=== PATIENT | female | born 1970 | race Caucasian/White ===

== ENCOUNTER → 2018-09-25 | Day surgery (SDC) | payer BC ==
[~2018-09-25] MED LIST: CHOL10003 PO; IV RINGERS,LACTATED 1000ML 1,000 ML IV SCH; LIDOCAINE 1% PF 2 ML VIAL. ID PRN; LIDOCAINE 2% PF 5 ML VIAL. ONE; MIDAZOLAM HCL/PF 2 MG/2 ML VIAL. IV PRN; PROPOFOL 40 ML IV ONE; fentaNYL PF VIAL 100 MCG/2 ML VIAL IV PRN
[2018-09-25 12:25] LABS: U PREG PATIENT NEGATIVE (NEG)
[2018-09-25 13:36] VITALS: BP 117/78
== END | disposition home or self-care (01) ==
LOC: SURG 11:42
PROVIDERS: ATTEND Internal Medicine Gastroenterology
DX: K22.2 Esophageal obstruction (principal); K64.0 First degree hemorrhoids; Z98.84 Bariatric surgery status; Z88.0 Allergy status to penicillin; K21.9 Gastro-esophageal reflux disease without esophagitis; Z83.71 Family history of colonic polyps; Z83.3 Family history of diabetes mellitus; Z82.49 Family history of ischemic heart disease and other diseases of the circulatory system; Z72.89 Other problems related to lifestyle; Z79.899 Other long term (current) drug therapy; Z98.890 Other specified postprocedural states
CPT/HCPCS: 43235; 43450; 45378; 81025; J2001; J2704

== ENCOUNTER 2020-05-28 07:14 | Inpatient (IN) | payer OTHER ==
[~2020-05-28] VITALS: Ht 167.6 cm; Wt 102.7 kg
[~2020-05-28 07:14] MED LIST changes: -IV RINGERS,LACTATED 1000ML 1,000 ML IV SCH; -LIDOCAINE 1% PF 2 ML VIAL. ID PRN; -LIDOCAINE 2% PF 5 ML VIAL. ONE; -MIDAZOLAM HCL/PF 2 MG/2 ML VIAL. IV PRN; -PROPOFOL 40 ML IV ONE; -fentaNYL PF VIAL 100 MCG/2 ML VIAL IV PRN
--- NOTE | 2020-05-28 08:00 | PHYS DOC ---
General Adult EDM: Chief Complaint: SHORTNESS OF BREATH HPI: HPI: Patient is a 50 year old female who presented to ER for evaluation of trouble breathing. Patient has been sick with cough and URI symptoms for a week, she was tested positive for COVID-19 5 days ago. Patient is on Z-Sage, prednisone, albuterol inhaler. She presented to ER today because her pulse ox at home was read at 80% on room air. Patient had no history of COPD, she is not on oxygen at home. Review of Systems: Review of Systems: Constitutional: Positive for fever or chills. [] Eyes: Denies change in visual acuity. [] HENT: Denies nasal congestion or sore throat. [] Respiratory: Positive for cough and shortness of breath. [] Cardiovascular: Denies chest pain or edema. [] GI: Denies abdominal pain, nausea, vomiting, bloody stools or diarrhea. [] : Denies dysuria. [] Musculoskeletal: Denies back pain or joint pain. [] Integument: Denies rash. [] Neurologic: Denies headache, focal weakness or sensory changes. [] Endocrine: Denies polyuria or polydipsia. [] Lymphatic: Denies swollen glands. [] Psychiatric: Denies depression or anxiety. [] Heart Score: Risk Factors: Risk Factors: DM, Current or recent (<one month) smoker, HTN, HLP, family history of CAD, obesity. Risk Scores: Score 0 - 3: 2.5% MACE over next 6 weeks - Discharge Home Score 4 - 6: 20.3% MACE over next 6 weeks - Admit for Clinical Observation Score 7 - 10: 72.7% MACE over next 6 weeks - Early Invasive Strategies Physical Exam: PE: Constitutional: Well developed, well nourished, no acute distress, non-toxic appearance. [] HENT: Normocephalic, atraumatic, bilateral external ears normal, oropharynx moist, no oral exudates, nose normal. [] Eyes: PERRLA, EOMI, conjunctiva normal, no discharge. [] Neck: Normal range of motion, no tenderness, supple, no stridor. [] Cardiovascular:Heart rate regular rhythm, no murmur [] Lungs & Thorax: Bilateral breath sounds with crackles diffusely, NO respiratory distress. Abdomen: Bowel sounds normal, soft, no tenderness, no masses, no pulsatile masses. [] Skin: Warm, dry, no erythema, no rash. [] Back: No tenderness, no CVA tenderness. [] Extremities: No tenderness, no cyanosis, no clubbing, ROM intact, no edema. [] Neurologic: Alert and oriented X 3, normal motor function, normal sensory function, no focal deficits noted. [] Psychologic: Affect normal, judgement normal, mood normal. [] Current Patient Data: Labs: Laboratory Tests Test 05/28/20 08:06 White Blood Count 12.2 x10^3/uL Red Blood Count 4.73 x10^6/uL Hemoglobin 14.0 g/dL Hematocrit 42.4 % Mean Corpuscular Volume 90 fL Mean Corpuscular Hemoglobin 30 pg Mean Corpuscular Hemoglobin Concent 33 g/dL Red Cell Distribution Width 13.0 % Platelet Count 342 x10^3/uL Neutrophils (%) (Auto) 90 % Lymphocytes (%) (Auto) 5 % Monocytes (%) (Auto) 4 % Eosinophils (%) (Auto) 0 % Basophils (%) (Auto) 1 % Neutrophils # (Auto) 10.9 x10^3/uL Lymphocytes # (Auto) 0.7 x10^3/uL Monocytes # (Auto) 0.5 x10^3/uL Eosinophils # (Auto) 0.0 x10^3/uL Basophils # (Auto) 0.1 x10^3/uL Platelet Estimate Pending Sodium Level 138 mmol/L Potassium Level 3.9 mmol/L Chloride Level 100 mmol/L Carbon Dioxide Level 29 mmol/L Anion Gap 9 Blood Urea Nitrogen 10 mg/dL Creatinine 0.6 mg/dL Estimated GFR (Cockcroft-Gault) 105.8 BUN/Creatinine Ratio 17 Glucose Level 109 mg/dL Calcium Level 8.7 mg/dL Magnesium Level 2.5 mg/dL Total Bilirubin 0.5 mg/dL Aspartate Amino Transf (AST/SGOT) 23 U/L Alanine Aminotransferase (ALT/SGPT) 23 U/L Alkaline Phosphatase 124 U/L Troponin I Quantitative < 0.017 ng/mL ZX-Tmb-C-Type Natriuretic Peptide 274 pg/mL Total Protein 7.5 g/dL Albumin 3.2 g/dL Albumin/Globulin Ratio 0.7 EKG: EKG: EKG was done at 751, heart rate of 89 bpm, NSR. NO STEMI. Radiology/Procedures: Radiology/Procedures: [][facility] [address] [place] [address] IMAGING REPORT Signed PATIENT: HEMALATHA SHEPPARDUNT: [id number] : 1970 LOCATION: ER AGE: 50 SEX: F EXAM STATUS: PRE ER ORD. PHYSICIAN: PRAKASH GAITAN DO REASON: shortness of air, COVID-19 INFECTION PROCEDURE: CHEST AP ONLY XR CHEST 1V INDICATION: Reason: shortness of air, COVID-19 INFECTION / Spl. Instructions: / History: . COMPARISON STUDY: None. FINDINGS: Lungs: Normal lung volume. Patchy bilateral heterogeneous opacities. The tracheobronchial tree and hilar structures are normal. Pleura: No pleural effusion or pneumothorax. Heart and Mediastinum: The cardiomediastinal silhouette is normal. The great vessels of the thorax are normal. Bones and Soft Tissues: The bones and soft tissues are within normal limits. IMPRESSION: Patchy bilateral opacities, concerning for multifocal infection. Electronically signed by: Etienne Clarke MD (05/28/2020 8:02 AM) [id number] DICTATED and SIGNED BY: ETIENNE CLARKE MD DATE: 05/28/20 [id number] Course & Med Decision Making: Course & Med Decision Making Pertinent Labs and Imaging studies reviewed. (See chart for details) Patient is a 50-year-old female who presented to ER for evaluation of trouble breathing and cough. Patient has been sick since with fever, chills, cough. She was tested positive for COVID-19 infection on Saturday. She presented to ER today because she having trouble breathing and her oxygen saturation was about 80% at home. Chest x-ray show bilateral groundglass infiltration. Patient will be admitted to hospital for further evaluation and treatment. Discussed with Dr. Nagy who agrees admit the patient. Jeffery Disclaimer: Jeffery Disclaimer: This electronic medical record was generated, in whole or in part, using a voice recognition dictation system. Departure Departure Impression: Primary Impression: Pneumonia due to COVID-19 virus Additional Impression: Respiratory failure Disposition: ADMITTED INPT THIS HOSP Admitting Physician: LUCIO (DR. NAGY) Condition: STABLE PRAKASH GAITAN DO May 28, 2020 08:00
--- NOTE | 2020-05-28 08:04 | RAD ---
XR CHEST 1V INDICATION: Reason: shortness of air, COVID-19 INFECTION / Spl. Instructions: / History: . COMPARISON STUDY: None. FINDINGS: Lungs: Normal lung volume. Patchy bilateral heterogeneous opacities. The tracheobronchial tree and hi lar structures are normal. Pleura: No pleural effusion or pneumothorax. Heart and Mediastinum: The cardiomediastinal silhouette is normal. The great vessels of the thorax ar e normal. Bones and Soft Tissues: The bones and soft tissues are within normal limits. IMPRESSION: Patchy bilateral opacities, concerning for multifocal infection. Electronically signed by: Gonzales Clarke MD (05/28/2020 8:02 AM) [id number]
[2020-05-28 08:28] LABS: BASO # 0.1 x10^3/uL (0.0-0.2); BASO % 1 % (0-3); EOS % 0 % (0-3); HEMATOCRIT 42.4 % (36.0-47.0); LYMPH # 0.7 x10^3/uL (1.0-4.8); LYMPH % 5 % (24-48); MEAN CORPUSCULAR HEMOGLOBIN 30 pg (25-35); MEAN CORPUSCULAR HGB CONC 33 g/dL (31-37); MEAN CORPUSCULAR VOLUME 90 fL (79-100); MONO # 0.5 x10^3/uL (0.0-1.1); MONO % 4 % (0-9); NEUT # 10.9 x10^3/uL (1.8-7.7); NEUT % 90 % (31-73); PLATELET COUNT 342 x10^3/uL (140-400); RED BLOOD COUNT 4.73 x10^6/uL (3.50-5.40); WHITE BLOOD COUNT 12.2 x10^3/uL (4.0-11.0)
[2020-05-28 08:31] LABS: CALCIUM 8.7 mg/dL (8.5-10.1); CREATININE 0.6 mg/dL (0.6-1.0); GFR 105.8; POTASSIUM 3.9 mmol/L (3.5-5.1)
[2020-05-28 08:37] LABS: ALBUMIN 3.2 g/dL (3.4-5.0); ALBUMIN/GLOBULIN RATIO 0.7 (1.0-1.7); MAGNESIUM 2.5 mg/dL (1.8-2.4); TOTAL BILIRUBIN 0.5 mg/dL (0.2-1.0); TOTAL PROTEIN 7.5 g/dL (6.4-8.2)
--- NOTE | 2020-05-28 10:16 | PDOC1 ---
History and Physical Date of Admission Date of Admission DATE: 05/28/20 TIME: 10:15 Identification/Chief Complaint Chief Complaint seen in er with acute hypoxic resp failure sec covid 19 syndrome 50 year old female who presented to ER for evaluation of trouble breathing. , IS HYPOXIC ON RA has been sick with cough and URI symptoms for a week, was tested positive for COVID-19 5 days ago. Patient is on Z-Sage, prednisone, albuterol inhaler. She presented to ER today because her pulse ox at home was read at 80% on room air. no history of COPD, she is not on oxygen at home Past Medical History Cardiovascular: No pertinent hx Renal/: No pertinent hx Endocrine: No pertinent hx Social History Smoke: No ALCOHOL: none Drugs: None Current Problem List Problem List Problems Medical Problems: (1) Pneumonia due to COVID-19 virus Status: Acute (2) Respiratory failure Status: Acute Allergies Allergies: Coded Allergies: Penicillins (Verified Allergy, Unknown, 05/28/20) ROS Review of System Constitutional: Positive for fever // chills. [] Eyes: Denies change in visual acuity. [] HENT: Denies nasal congestion or sore throat. [] Respiratory: Positive for cough and shortness of breath. [] Cardiovascular: Denies chest pain or edema. [] GI: Denies abdominal pain, nausea, vomiting, bloody stools or diarrhea. [] : Denies dysuria. [] Musculoskeletal: Denies back pain or joint pain. [] Integument: Denies rash. [] Neurologic: Denies headache, focal weakness or sensory changes. [] Endocrine: Denies polyuria or polydipsia. [] Lymphatic: Denies swollen glands. [] Psychiatric: Denies depression or anxiety. [] 14 pt ros otherwise neg General: YES: Chills, Fatigue, Malaise Hematological and Lymphatic: No: Bleeding Problems, Blood Clots, Blood Transfusions, Brusing, Night Sweats, Pallor, Swollen Lymph Nodes, Other ENDOCRINE: No: Breast Changes, Galactorrhea, Hair Pattern Changes, Hot Flashes, Malaise/lethargy, Mood Swings, Palpitations, Polydipsia/polyuria, Skin Changes, Temperature Intolerance, Unexpected Weight Changes, Other Respiratory: YES: Cough, Shortness of breath, SOB with excertion Cardiovascular: No Chest Pain, No Palpitations, No Orthopnea, No Paroxysmal Noc. Dyspnea, No Edema, No Lt Headedness, No Other Musculoskeletal: No Gait Disturbance, No Joint Pain, No Joint Stiffness, No Joint Swelling, No Muscle Pain, No Muscular Weakness, No Pain In:, No Swelling In:, No Other Neurological: No Behavorial Changes, No Bowel/Bladder ControlChng, No Confusion, No Dizziness, No Gait Disturbance, No Headaches, No Impaired Coord/balance, No Memory Loss, No Numbness/Tingling, No Seizures, No Speech Problems, No Tremors, No Visual Changes, No Weakness, No Other Physical Exam Physical Exam Constitutional: Well developed, well nourished, no acute distress, non-toxic appearance. [] HENT: Normocephalic, atraumatic, bilateral external ears normal, oropharynx moist, no oral exudates, nose normal. [] Eyes: PERRLA, EOMI, conjunctiva normal, no discharge. [] Neck: Normal range of motion, no tenderness, supple, no stridor. [] Cardiovascular:Heart rate regular rhythm, no murmur [] Lungs & Thorax: Bilateral breath sounds with crackles diffusely, NO respiratory distress. Abdomen: Bowel sounds normal, soft, no tenderness, no masses, no pulsatile masses. [] Skin: Warm, dry, no erythema, no rash. [] Back: No tenderness, no CVA tenderness. [] Extremities: No tenderness, no cyanosis, no clubbing, ROM intact, no edema. [] Neurologic: Alert and oriented X 3, normal motor function, normal sensory function, no focal deficits noted. [] Psychologic: Affect normal, judgment normal, mood normal. [] General: Alert, Oriented X3, Cooperative, No acute distress HEENT: Atraumatic Breasts: Not examined Rectal Exam: not examined Extremities: No cyanosis Neuro: Normal speech, Cranial nerves 3-12 NL Psych/Mental Status: Mental status NL, Mood NL Vitals Vitals Vital Signs Date Time Temp Pulse Resp B/P (MAP) Pulse Ox O2 Delivery O2 Flow Rate FiO2 05/28/20 07:35 100.7 92 22 119/75 (90) 97 Nasal Cannula 2.0 100.7 Labs Labs Laboratory Tests Test 05/28/20 08:06 White Blood Count 12.2 x10^3/uL (4.0-11.0) Red Blood Count 4.73 x10^6/uL (3.50-5.40) Hemoglobin 14.0 g/dL (12.0-15.5) Hematocrit 42.4 % (36.0-47.0) Mean Corpuscular Volume 90 fL (79-100) Mean Corpuscular Hemoglobin 30 pg (25-35) Mean Corpuscular Hemoglobin Concent 33 g/dL (31-37) Red Cell Distribution Width 13.0 % (11.5-14.5) Platelet Count 342 x10^3/uL (140-400) Neutrophils (%) (Auto) 90 % (31-73) Lymphocytes (%) (Auto) 5 % (24-48) Monocytes (%) (Auto) 4 % (0-9) Eosinophils (%) (Auto) 0 % (0-3) Basophils (%) (Auto) 1 % (0-3) Neutrophils # (Auto) 10.9 x10^3/uL (1.8-7.7) Lymphocytes # (Auto) 0.7 x10^3/uL (1.0-4.8) Monocytes # (Auto) 0.5 x10^3/uL (0.0-1.1) Eosinophils # (Auto) 0.0 x10^3/uL (0.0-0.7) Basophils # (Auto) 0.1 x10^3/uL (0.0-0.2) Sodium Level 138 mmol/L (136-145) Potassium Level 3.9 mmol/L (3.5-5.1) Chloride Level 100 mmol/L (98-107) Carbon Dioxide Level 29 mmol/L (21-32) Anion Gap 9 (6-14) Blood Urea Nitrogen 10 mg/dL (7-20) Creatinine 0.6 mg/dL (0.6-1.0) Estimated GFR (Cockcroft-Gault) 105.8 BUN/Creatinine Ratio 17 (6-20) Glucose Level 109 mg/dL (70-99) Lactic Acid Level 1.4 mmol/L (0.4-2.0) Calcium Level 8.7 mg/dL (8.5-10.1) Magnesium Level 2.5 mg/dL (1.8-2.4) Total Bilirubin 0.5 mg/dL (0.2-1.0) Aspartate Amino Transf (AST/SGOT) 23 U/L (15-37) Alanine Aminotransferase (ALT/SGPT) 23 U/L (14-59) Alkaline Phosphatase 124 U/L (46-116) Troponin I Quantitative < 0.017 ng/mL (0.000-0.055) MI-Saa-J-Type Natriuretic Peptide 274 pg/mL (0-124) Total Protein 7.5 g/dL (6.4-8.2) Albumin 3.2 g/dL (3.4-5.0) Albumin/Globulin Ratio 0.7 (1.0-1.7) Laboratory Tests Test 05/28/20 08:06 White Blood Count 12.2 x10^3/uL (4.0-11.0) Red Blood Count 4.73 x10^6/uL (3.50-5.40) Hemoglobin 14.0 g/dL (12.0-15.5) Hematocrit 42.4 % (36.0-47.0) Mean Corpuscular Volume 90 fL (79-100) Mean Corpuscular Hemoglobin 30 pg (25-35) Mean Corpuscular Hemoglobin Concent 33 g/dL (31-37) Red Cell Distribution Width 13.0 % (11.5-14.5) Platelet Count 342 x10^3/uL (140-400) Neutrophils (%) (Auto) 90 % (31-73) Lymphocytes (%) (Auto) 5 % (24-48) Monocytes (%) (Auto) 4 % (0-9) Eosinophils (%) (Auto) 0 % (0-3) Basophils (%) (Auto) 1 % (0-3) Neutrophils # (Auto) 10.9 x10^3/uL (1.8-7.7) Lymphocytes # (Auto) 0.7 x10^3/uL (1.0-4.8) Monocytes # (Auto) 0.5 x10^3/uL (0.0-1.1) Eosinophils # (Auto) 0.0 x10^3/uL (0.0-0.7) Basophils # (Auto) 0.1 x10^3/uL (0.0-0.2) Sodium Level 138 mmol/L (136-145) Potassium Level 3.9 mmol/L (3.5-5.1) Chloride Level 100 mmol/L (98-107) Carbon Dioxide Level 29 mmol/L (21-32) Anion Gap 9 (6-14) Blood Urea Nitrogen 10 mg/dL (7-20) Creatinine 0.6 mg/dL (0.6-1.0) Estimated GFR (Cockcroft-Gault) 105.8 BUN/Creatinine Ratio 17 (6-20) Glucose Level 109 mg/dL (70-99) Lactic Acid Level 1.4 mmol/L (0.4-2.0) Calcium Level 8.7 mg/dL (8.5-10.1) Magnesium Level 2.5 mg/dL (1.8-2.4) Total Bilirubin 0.5 mg/dL (0.2-1.0) Aspartate Amino Transf (AST/SGOT) 23 U/L (15-37) Alanine Aminotransferase (ALT/SGPT) 23 U/L (14-59) Alkaline Phosphatase 124 U/L (46-116) Troponin I Quantitative < 0.017 ng/mL (0.000-0.055) CR-Zmo-O-Type Natriuretic Peptide 274 pg/mL (0-124) Total Protein 7.5 g/dL (6.4-8.2) Albumin 3.2 g/dL (3.4-5.0) Albumin/Globulin Ratio 0.7 (1.0-1.7) Images Images XR CHEST 1V INDICATION: Reason: shortness of air, COVID-19 INFECTION / Spl. Instructions: / History: . COMPARISON STUDY: None. FINDINGS: Lungs: Normal lung volume. Patchy bilateral heterogeneous opacities. The tracheobronchial tree and hilar structures are normal. Pleura: No pleural effusion or pneumothorax. Heart and Mediastinum: The cardiomediastinal silhouette is normal. The great vessels of the thorax are normal. Bones and Soft Tissues: The bones and soft tissues are within normal limits. IMPRESSION: Patchy bilateral opacities, concerning for multifocal infection. Electronically signed by: Etienne Saavedra MD (05/28/2020 8:02 AM) [id number] DICTATED and SIGNED BY: ETIENNE SAAVEDRA MD DATE: 05/28/20 [id number] VTE Prophylaxis Ordered VTE Prophylaxis Devices: Yes VTE Pharmacological Prophylaxi: Yes Assessment/Plan Assessment/Plan IMPRESSION: Acute hypoxic respiratory failure Patchy bilateral opacities, concerning for multifocal infection. sec SARS 2 Covid 19 syndrome morbid obesity leukocytosis FEVER plan admit o2 support iv decadron 6 mg bid pulm consult dvt prophylaxis resp isolation albuterol inhaler 2 puffs q 4 hrs prn iv doxycycline 100mg bid PEPSID 20 MG PO BID VITC, MVI, VIT D D/W ER DR Justifications for Admission Other Justification LEONORA NAGY MD May 28, 2020 10:16
[2020-05-28 10:44] LABS: % BANDS 6 % (0-9); % LYMPHS 2 % (24-48); % MONOS 1 % (0-10); % SEGS 91 % (35-66); PLT ESTIMATE ADEQUATE (ADEQUATE)
[2020-05-28] MEDS ORDERED: guaiFENesin ORAL 200 MG/10 ML LIQUID. PO PRN (14:00)
[2020-05-28] MEDS ORDERED: ONDANSETRON PF 4 MG/2 ML VIAL. IV PRN (14:00)
[2020-05-28] MEDS ORDERED: 0.9 % SODIUM CHLORIDE 10 ML DISP.SYRIN. IV PRN (14:00)
[2020-05-28] MEDS ORDERED: ALBUTEROL SULFATE 2.5 MG/3 ML NEBU. NEB PRN (14:00)
[2020-05-28] MEDS ORDERED: MAG HYDROX/ALUMINUM HYD/SIMETH 30 ML ORAL.SUSP PO PRN (14:00)
[2020-05-28] MEDS ORDERED: ACETAMINOPHEN 325 MG TABLET. PO PRN (14:00)
[2020-05-28] MEDS ORDERED: DOCUSATE SODIUM 100 MG CAPSULE. PO PRN (14:00)
[2020-05-28] MEDS ORDERED: LORazepam 0.5 MG TABLET PO PRN (14:00)
[2020-05-28 14:52] VITALS: BP 103/70
[2020-05-28 14:58] VITALS: BP 103/70
[2020-05-28] MEDS: ASCORBIC ACID 500 MG TABLET PO SCH (15:14)
[2020-05-28] MEDS: DEXAMETHASONE SOD PHOS 4 MG/ML VIAL IVP SCH ×2 (15:14→20:47)
[2020-05-28 15:49] VITALS: BP 150/65
[2020-05-28] MEDS ORDERED: ASPI-630 PO (18:30)
[2020-05-28] MEDS ORDERED: VENTOLIN HFA18 GM INH (18:31)
[2020-05-28 19:00] VITALS: BP 123/63
[2020-05-28] MEDS: FAMOTIDINE 20 MG TABLET. PO SCH (20:46)
[2020-05-28] MEDS: ENOXAPARIN 40 MG/0.4 ML SYRINGE. SQ SCH (20:47)
[2020-05-28 23:00] VITALS: BP 125/60
[2020-05-28] MEDS: DOXYCYCLINE HYCLATE 100 MG in IV DEXTROSE 5% 100ML 100 ML IV SCH (23:00)
[2020-05-29 03:00] VITALS: BP 116/63
[2020-05-29 07:00] VITALS: BP 112/67
--- NOTE | 2020-05-29 07:48 | EKG ---
[facility] [address] [place] [address] Test Date: 2020-05-28 Test Time: 07:51:12 Pat Name: ALMA SHEPPARD Department: Room: [facility] Gender: F Mohel: : 1970 Requested By: PRAKASH GAITAN Order Number: [id number] Reading MD: Man Paulino Measurements Intervals [place] Rate: 89 P: -5 TN: 136 QRS: -12 QRSD: 84 T: 4 QT: 350 QTc: 427 Interpretive Statements SINUS RHYTHM LEFTWARD AXIS Electronically Signed On 05-31-2020 13:47:24 [employer] by Man Paulino
[2020-05-29] MEDS: ASCORBIC ACID 500 MG TABLET PO SCH (08:46)
[2020-05-29] MEDS: FAMOTIDINE 20 MG TABLET. PO SCH ×2 (08:46→21:00)
[2020-05-29] MEDS: CHOLECALCIFEROL (VITAMIN D3) 1,000 UNIT TABLET PO SCH (08:46)
[2020-05-29] MEDS: VITAMIN B12,B9,B6 COMPLEX 1 TABLET. PO SCH (08:46)
[2020-05-29] MEDS: ENOXAPARIN 40 MG/0.4 ML SYRINGE. SQ SCH ×2 (08:47→21:00)
[2020-05-29] MEDS: DEXAMETHASONE SOD PHOS 4 MG/ML VIAL IVP SCH ×2 (08:52→21:00)
[2020-05-29] MEDS: DOXYCYCLINE HYCLATE 100 MG in IV DEXTROSE 5% 100ML 100 ML IV SCH ×2 (08:54→23:23)
--- NOTE | 2020-05-29 10:25 | PDOC ---
[employer] PROGRESS NOTE Date of Service DOS: DATE: 05/29/20 TIME: 10:24 Chief Complaint Chief Complaint Acute hypoxic respiratory failure COVID-19 infection Patchy bilateral opacities, concerning for multifocal infection. sec SARS 2 Covid 19 syndrome morbid obesity leukocytosis FEVER plan admit o2 support iv decadron 6 mg bid pulm consult dvt prophylaxis resp isolation albuterol inhaler 2 puffs q 4 hrs prn iv doxycycline 100mg bid PEPSID 20 MG PO BID VITC, MVI, VIT D History of Present Illness History of Present Illness 05/29/2020 No acute events overnight. Patient is saturating 92% on 2 L nasal cannula. No dyspneic episodes and breathing fine. Patient has done prone positioning while watching TV. Patient's chart, labs, images were reviewed and discussed with RN seen in er with acute hypoxic resp failure sec covid 19 syndrome 50 year old female who presented to ER for evaluation of trouble breathing. , IS HYPOXIC ON RA has been sick with cough and URI symptoms for a week, was tested positive for COVID-19 5 days ago. Patient is on Z-Sage, prednisone, albuterol inhaler. She presented to ER today because her pulse ox at home was read at 80% on room air. no history of COPD, she is not on oxygen at home Vitals/I&O Vitals/I&O: Vital Signs Date Time Temp Pulse Resp B/P (MAP) Pulse Ox O2 Delivery O2 Flow Rate FiO2 05/29/20 07:00 97.8 60 24 112/67 (82) 93 Nasal Cannula 2.0 97.8 I & O 05/28/20 05/28/20 05/29/20 15:00 23:00 07:00 Intake Total 120 ml 850 ml Balance 120 ml 850 ml Physical Exam General: Alert, Oriented X3, Cooperative, No acute distress Extremities: No cyanosis Assessment and Plan Assessmemt and Plan Problems Medical Problems: (1) Pneumonia due to COVID-19 virus Status: Acute (2) Respiratory failure Status: Acute Comment Review of Relevant I have reviewed the following items deyvi (where applicable) has been applied. Medications: Current Medications Medications (Trade) Dose Ordered Sig/Ad Route PRN Reason Start Time Stop Time Status Last Admin Dose Admin Guaifenesin (Robitussin) 200 mg PRN Q4HRS PRN PO COUGH 05/28/20 14:00 05/28/20 18:16 Lorazepam (Ativan) 0.5 mg PRN Q4HRS PRN PO ANXIETY / AGITATION 05/28/20 14:00 05/28/20 20:46 Enoxaparin Sodium (Lovenox 40mg Syringe) 40 mg BID SQ 05/28/20 21:00 05/29/20 08:47 Doxycycline Hyclate 100 mg/ Dextrose 100 ml @ 50 mls/hr Q12HR IV 05/28/20 23:00 05/29/20 08:54 Dexamethasone Sodium Phosphate (Decadron) 6 mg BID IVP 05/28/20 14:00 05/29/20 08:52 Famotidine (Pepcid) 20 mg BID PO 05/28/20 21:00 05/29/20 08:46 Ascorbic Acid (Vitamin C) 500 mg DAILY PO 05/28/20 15:00 05/29/20 08:46 Vitamin D (Vitamin D3) 1,000 unit DAILY PO 05/29/20 09:00 05/29/20 08:46 Vitamin B Complex (Folbic Tablet) 1 tab DAILY PO 05/29/20 09:00 05/29/20 08:46 Justifications for Admission General Conditions Other justification for admit: acute hypoxic resp failure Other Justification CODY MARTINO MD May 29, 2020 10:25
[2020-05-29 11:00] VITALS: BP 148/66
[2020-05-29 15:00] VITALS: BP 119/73
[2020-05-29] MEDS: ASPIRIN CHEWABLE 81 MG TABLET. PO SCH (16:23)
[2020-05-29] MEDS: IPRATROPIUM/ALBUTEROL 20/100mcg/INH INHALER. INH SCH ×2 (16:23→20:00)
--- NOTE | 2020-05-29 18:18 | PDOC ---
PULMONARY PROGRESS NOTES DATE: 05/29/20 TIME: 18:17 Vitals Vital Signs Date Time Temp Pulse Resp B/P (MAP) Pulse Ox O2 Delivery O2 Flow Rate FiO2 05/29/20 15:00 97.7 63 24 119/73 (88) 93 Nasal Cannula 2.0 97.7 Labs Laboratory Tests Test 05/28/20 08:06 White Blood Count 12.2 x10^3/uL (4.0-11.0) Red Blood Count 4.73 x10^6/uL (3.50-5.40) Hemoglobin 14.0 g/dL (12.0-15.5) Hematocrit 42.4 % (36.0-47.0) Mean Corpuscular Volume 90 fL (79-100) Mean Corpuscular Hemoglobin 30 pg (25-35) Mean Corpuscular Hemoglobin Concent 33 g/dL (31-37) Red Cell Distribution Width 13.0 % (11.5-14.5) Platelet Count 342 x10^3/uL (140-400) Neutrophils (%) (Auto) 90 % (31-73) Lymphocytes (%) (Auto) 5 % (24-48) Monocytes (%) (Auto) 4 % (0-9) Eosinophils (%) (Auto) 0 % (0-3) Basophils (%) (Auto) 1 % (0-3) Neutrophils # (Auto) 10.9 x10^3/uL (1.8-7.7) Lymphocytes # (Auto) 0.7 x10^3/uL (1.0-4.8) Monocytes # (Auto) 0.5 x10^3/uL (0.0-1.1) Eosinophils # (Auto) 0.0 x10^3/uL (0.0-0.7) Basophils # (Auto) 0.1 x10^3/uL (0.0-0.2) Segmented Neutrophils % 91 % (35-66) Band Neutrophils % 6 % (0-9) Lymphocytes % 2 % (24-48) Monocytes % 1 % (0-10) Platelet Estimate Adequate (ADEQUATE) Sodium Level 138 mmol/L (136-145) Potassium Level 3.9 mmol/L (3.5-5.1) Chloride Level 100 mmol/L (98-107) Carbon Dioxide Level 29 mmol/L (21-32) Anion Gap 9 (6-14) Blood Urea Nitrogen 10 mg/dL (7-20) Creatinine 0.6 mg/dL (0.6-1.0) Estimated GFR (Cockcroft-Gault) 105.8 BUN/Creatinine Ratio 17 (6-20) Glucose Level 109 mg/dL (70-99) Lactic Acid Level 1.4 mmol/L (0.4-2.0) Calcium Level 8.7 mg/dL (8.5-10.1) Magnesium Level 2.5 mg/dL (1.8-2.4) Total Bilirubin 0.5 mg/dL (0.2-1.0) Aspartate Amino Transf (AST/SGOT) 23 U/L (15-37) Alanine Aminotransferase (ALT/SGPT) 23 U/L (14-59) Alkaline Phosphatase 124 U/L (46-116) Troponin I Quantitative < 0.017 ng/mL (0.000-0.055) MK-Aqn-K-Type Natriuretic Peptide 274 pg/mL (0-124) Total Protein 7.5 g/dL (6.4-8.2) Albumin 3.2 g/dL (3.4-5.0) Albumin/Globulin Ratio 0.7 (1.0-1.7) Medications Active Scripts Medications Dose Route/Sig Max Daily Dose Days Date Category Ventolin Hfa Inhaler (Albuterol Sulfate) 18 Gm Hfa.aer.ad 2 Puff INH QID 05/28/20 Reported Aspirin 81 Mg Tab.chew 1 Tab PO DAILY 05/28/20 Reported Impression . Full consult dictated COVID-19 viral pneumonia Acute hypoxemic respiratory failure Continue current medical management add remdesivir. BRITTNY RUGGIERO MD May 29, 2020 18:18
[2020-05-29 19:37] VITALS: BP 123/61
[2020-05-29] MEDS ORDERED: REMDESIVIR LOAD in IV NORMAL SALINE 250ML TV IV ONE (20:00)
--- NOTE | 2020-05-29 20:10 | CONS ---
DATE OF CONSULTATION: 05/29/2020 ATTENDING PHYSICIAN: Giuliano Harris M.D. CONSULTING PHYSICIAN: Brittny Ruggiero M.D. REASON FOR CONSULTATION: The patient is seen in pulmonary consultation at the request of Dr. Harris for hypoxemia, abnormal x-ray and COVID-19 positive 5 days ago. HISTORY OF PRESENT ILLNESS: The patient is a 50-year-old that had some fevers, body aches, nausea, vomiting 5 days ago, was tested and came back positive. Over the last 2-3 days, she was monitoring her O2 saturation, which dropped into the upper 70s-80s. The patient had been on Z-Sage, prednisone and albuterol inhaler. She presented with the above complaints of being more short of air and hypoxic. Chest x-ray was obtained, which revealed bilateral pulmonary infiltrates compatible with COVID-19. The patient was admitted. She is currently on doxycycline, dexamethasone and Lovenox. She has a cough, mostly nonproductive. PAST MEDICAL AND PAST SURGICAL HISTORY: None. SOCIAL HISTORY: She has never smoked. REVIEW OF SYSTEMS: As indicated above, otherwise, a 10-point system was reviewed and negative. ALLERGIES: PENICILLIN. PHYSICAL EXAMINATION: VITAL SIGNS: Stable. O2 saturation was greater than 92%. She had a T-max of 100.7 yesterday. Blood cultures are pending. HEENT: Eyes: The sclerae were nonicteric. NECK: Jugular venous distention was not elevated. No lymphadenopathy. CHEST: Full expansion. LUNGS: Clear. No wheezes. CARDIOVASCULAR: Regular rate and rhythm with S1, S2, no S3. ABDOMEN: Soft, nontender, nondistended. EXTREMITIES: No clubbing, cyanosis or pitting edema. NEUROLOGICAL: The patient was awake, alert, following commands. A detailed neuro exam was not performed. LABORATORY DATA: White count was elevated. Hemoglobin and hematocrit were noted. Electrolytes were noted. Liver chemistries were normal. Magnesium was high. Glucose was slightly high. Albumin was slightly low. Chest x-ray as indicated above. IMPRESSION: 1. Acute hypoxemic respiratory failure secondary to COVID-19 viral pneumonia. 2. Abnormal x-ray. 3. Possible bacterial pneumonia. 4. Obesity. 5. Leukocytosis. 6. Protein malnutrition, present upon admission. PLAN: 1. Continue current support with steroids. 2. Add remdesivir. 3. Follow up on blood cultures. 4. Continue doxycycline. 5. Oxygen supplementation. 6. Deep venous thrombosis prophylaxis. I do appreciate the privilege in sharing in patient's care. BRITTNY RUGGIERO MD DR: ATA/sharon JOB#: [id number] / [id number]
[2020-05-29 23:00] VITALS: BP 127/64
[2020-05-30 03:00] VITALS: BP 135/63
[2020-05-30 07:00] VITALS: BP 117/73
[2020-05-30] MEDS: IPRATROPIUM/ALBUTEROL 20/100mcg/INH INHALER. INH SCH ×4 (08:00→20:00)
[2020-05-30] MEDS: CHOLECALCIFEROL (VITAMIN D3) 1,000 UNIT TABLET PO SCH (08:41)
[2020-05-30] MEDS: ENOXAPARIN 40 MG/0.4 ML SYRINGE. SQ SCH ×2 (08:41→21:16)
[2020-05-30] MEDS: FAMOTIDINE 20 MG TABLET. PO SCH ×2 (08:41→21:18)
[2020-05-30] MEDS: DEXAMETHASONE SOD PHOS 4 MG/ML VIAL IVP SCH ×2 (08:41→21:18)
[2020-05-30] MEDS: DOXYCYCLINE HYCLATE 100 MG in IV DEXTROSE 5% 100ML 100 ML IV SCH ×2 (08:41→21:16)
[2020-05-30] MEDS: ASPIRIN CHEWABLE 81 MG TABLET. PO SCH (08:41)
[2020-05-30] MEDS: ASCORBIC ACID 500 MG TABLET PO SCH (08:41)
[2020-05-30] MEDS: VITAMIN B12,B9,B6 COMPLEX 1 TABLET. PO SCH (08:41)
[2020-05-30 11:00] VITALS: BP 122/59
--- NOTE | 2020-05-30 11:35 | PDOC ---
PULMONARY PROGRESS NOTES DATE: 05/30/20 TIME: 11:35 Subjective Patient feels slightly better Afebrile Not more short of air Vitals Vital Signs Date Time Temp Pulse Resp B/P (MAP) Pulse Ox O2 Delivery O2 Flow Rate FiO2 05/30/20 08:00 Nasal Cannula 2.0 05/30/20 07:00 97.5 59 27 117/73 (88) 93 97.5 ROS: No Nausea, No Chest Pain, No Abdominal Pain, No Increase Cough General: Alert Lungs: Crackles Cardiovascular: S1, S2 Abdomen: Soft Neuro Exam: Alert Extremities: No Edema Skin: Warm Medications Active Scripts Medications Dose Route/Sig Max Daily Dose Days Date Category Ventolin Hfa Inhaler (Albuterol Sulfate) 18 Gm Hfa.aer.ad 2 Puff INH QID 05/28/20 Reported Aspirin 81 Mg Tab.chew 1 Tab PO DAILY 05/28/20 Reported Impression . IMPRESSION: 1. Acute hypoxemic respiratory failure secondary to COVID-19 viral pneumonia. 2. Abnormal x-ray. 3. Possible bacterial pneumonia. 4. Obesity. 5. Leukocytosis. 6. Protein malnutrition, present upon admission. Plan . 1. Continue current support with steroids. 2. Added remdesivir. 3. Follow up on blood cultures. So far negative 4. Continue doxycycline. 5. Oxygen supplementation. 6. Deep venous thrombosis prophylaxis. BRITTNY RUGGIERO MD May 30, 2020 11:35
--- NOTE | 2020-05-30 12:55 | PDOC ---
[facility] [facility] PROGRESS NOTE Date of Service DOS: DATE: 05/30/20 TIME: 12:54 Chief Complaint Chief Complaint A/P: Acute hypoxic respiratory failure COVID-19 infection Patchy bilateral opacities, concerning for multifocal infection. sec SARS 2 Covid 19 syndrome morbid obesity Sepsis - fever, leukocytosis, due to COVID 19 pneumonia plan admit o2 support iv decadron 6 mg bid pulm consult dvt prophylaxis resp isolation albuterol inhaler 2 puffs q 4 hrs prn iv doxycycline 100mg bid PEPSID 20 MG PO BID VITC, MVI, VIT D History of Present Illness History of Present Illness Ms Silverio is a 50 year old female w/ PMHx morbid obesity s/p gastric bypass who presented to ER for evaluation of trouble breathing. Sick with cough and URI symptoms for a week, was tested positive for COVID-19 on 05/23/2020. Patient is on Z-Sage, prednisone, albuterol inhaler. She presented to ER today because her pulse ox at home was read at 80% on room air. No history of COPD, she is not on oxygen at home Patient had an oral temp of 100.7, and has a productive cough. Patient is awake, alert, ABC's intact, SPO2 was 91% ra, 2LPM NC paced on patient, SPO2 improved to 97%. 05/29: No acute events overnight. Patient is saturating 92% on 2 L nasal cannula. No dyspneic episodes and breathing fine. Patient has done prone positioning while watching TV. Afebrile. On 2 to 3 L nasal cannula oxygen dependent with movement. Has no significant sense of taste. Minimal appetite. Vitals/I&O Vitals/I&O: Vital Signs Date Time Temp Pulse Resp B/P (MAP) Pulse Ox O2 Delivery O2 Flow Rate FiO2 05/30/20 11:00 96.0 68 22 122/59 (80) 99 Nasal Cannula 2.0 96.0 I & O 05/29/20 05/29/20 05/30/20 15:00 23:00 07:00 Intake Total 150 ml 300 ml 440 ml Balance 150 ml 300 ml 440 ml Physical Exam General: Alert, Oriented X3, Cooperative, No acute distress Extremities: No cyanosis Assessment and Plan Assessmemt and Plan Problems Medical Problems: (1) Pneumonia due to COVID-19 virus Status: Acute (2) Respiratory failure Status: Acute Comment Review of Relevant I have reviewed the following items deyvi (where applicable) has been applied. Medications: Current Medications Medications (Trade) Dose Ordered Sig/Ad Route PRN Reason Start Time Stop Time Status Last Admin Dose Admin Albuterol/ Ipratropium (Combivent Respimat 20-100 Mcg) 1 puff RTQID INH 05/29/20 16:00 05/29/20 20:00 Aspirin (Aspirin Chewable) 81 mg DAILY PO 05/29/20 15:00 05/30/20 08:41 Remdesivir 200 mg/ Sodium Chloride 210 ml @ 210 mls/hr 1X ONCE IV 05/29/20 20:00 05/29/20 20:59 DC 05/29/20 20:00 Justifications for Admission General Conditions Other justification for admit: acute hypoxic resp failure Other Justification SINDY COUCH MD May 30, 2020 12:55
--- NOTE | 2020-05-30 13:40 | NUR ---
SW following for discharge planning. Spoke with RN and reviewed chart. Pt from home with spouse. PT/OT to evaluate. Pt COVID positive, 2l 02, IV doxy. Spoke with pt, no home 02. Possible 6 min walk needed prior to discharge. Discharge plan is home, self-care. SW following.
[2020-05-30 15:00] VITALS: BP 126/67
[2020-05-30 19:30] VITALS: BP 127/50
[2020-05-30] MEDS: REMDESIVIR 100mg in NORMAL SALINE 250ML X 4 DAYS IV SCH (21:13)
[2020-05-30] MEDS: LACTOBACILLUS RHAMNOSUS GG 1 CAPSULE. PO SCH (21:16)
[2020-05-30 23:30] VITALS: BP 128/61
[2020-05-31 03:55] VITALS: BP 136/64
[2020-05-31 07:00] VITALS: BP 141/79
[2020-05-31] MEDS: IPRATROPIUM/ALBUTEROL 20/100mcg/INH INHALER. INH SCH ×4 (08:00→20:25)
[2020-05-31] MEDS: FAMOTIDINE 20 MG TABLET. PO SCH ×2 (08:12→20:02)
[2020-05-31] MEDS: DEXAMETHASONE SOD PHOS 4 MG/ML VIAL IVP SCH ×2 (08:12→20:05)
[2020-05-31] MEDS: DOXYCYCLINE HYCLATE 100 MG in IV DEXTROSE 5% 100ML 100 ML IV SCH ×2 (08:12→20:06)
[2020-05-31] MEDS: ENOXAPARIN 40 MG/0.4 ML SYRINGE. SQ SCH ×2 (08:12→20:03)
[2020-05-31] MEDS: ASPIRIN CHEWABLE 81 MG TABLET. PO SCH (08:12)
[2020-05-31] MEDS: ASCORBIC ACID 500 MG TABLET PO SCH (08:13)
[2020-05-31] MEDS: LACTOBACILLUS RHAMNOSUS GG 1 CAPSULE. PO SCH ×2 (08:13→20:03)
[2020-05-31] MEDS: VITAMIN B12,B9,B6 COMPLEX 1 TABLET. PO SCH (08:13)
[2020-05-31] MEDS: CHOLECALCIFEROL (VITAMIN D3) 1,000 UNIT TABLET PO SCH (08:13)
[2020-05-31 09:52] LABS: BASO % 0 % (0-3); EOS % 0 % (0-3); HEMATOCRIT 43.2 % (36.0-47.0); HEMOGLOBIN 14.2 g/dL (12.0-15.5); LYMPH # 1.2 x10^3/uL (1.0-4.8); LYMPH % 10 % (24-48); MEAN CORPUSCULAR HEMOGLOBIN 30 pg (25-35); MEAN CORPUSCULAR HGB CONC 33 g/dL (31-37); MEAN CORPUSCULAR VOLUME 90 fL (79-100); MONO # 0.6 x10^3/uL (0.0-1.1); MONO % 5 % (0-9); NEUT % 86 % (31-73); PLATELET COUNT 482 x10^3/uL (140-400); RED BLOOD COUNT 4.79 x10^6/uL (3.50-5.40); RED CELL DISTRIBUTION WIDTH 12.9 % (11.5-14.5); WHITE BLOOD COUNT 12.8 x10^3/uL (4.0-11.0)
[2020-05-31 10:07] LABS: ALBUMIN 2.8 g/dL (3.4-5.0); ALBUMIN/GLOBULIN RATIO 0.7 (1.0-1.7); CALCIUM 9.1 mg/dL (8.5-10.1); CREATININE 0.6 mg/dL (0.6-1.0); GFR 105.8; POTASSIUM 4.1 mmol/L (3.5-5.1); TOTAL BILIRUBIN 0.3 mg/dL (0.2-1.0); TOTAL PROTEIN 6.7 g/dL (6.4-8.2)
--- NOTE | 2020-05-31 10:48 | PDOC ---
PULMONARY PROGRESS NOTES DATE: 05/31/20 TIME: 10:46 Subjective Patient feels better Afebrile Not more short of air Vitals Vital Signs Date Time Temp Pulse Resp B/P (MAP) Pulse Ox O2 Delivery O2 Flow Rate FiO2 05/31/20 07:00 97.4 54 24 141/79 (99) 95 Nasal Cannula 2.0 97.4 ROS: No Nausea, No Chest Pain, No Abdominal Pain, No Increase Cough General: Alert Lungs: Clear Cardiovascular: S1, S2 Abdomen: Soft Neuro Exam: Alert Extremities: No Edema Skin: Warm Labs Laboratory Tests Test 05/31/20 08:55 White Blood Count 12.8 x10^3/uL (4.0-11.0) Red Blood Count 4.79 x10^6/uL (3.50-5.40) Hemoglobin 14.2 g/dL (12.0-15.5) Hematocrit 43.2 % (36.0-47.0) Mean Corpuscular Volume 90 fL (79-100) Mean Corpuscular Hemoglobin 30 pg (25-35) Mean Corpuscular Hemoglobin Concent 33 g/dL (31-37) Red Cell Distribution Width 12.9 % (11.5-14.5) Platelet Count 482 x10^3/uL (140-400) Neutrophils (%) (Auto) 86 % (31-73) Lymphocytes (%) (Auto) 10 % (24-48) Monocytes (%) (Auto) 5 % (0-9) Eosinophils (%) (Auto) 0 % (0-3) Basophils (%) (Auto) 0 % (0-3) Neutrophils # (Auto) 11.0 x10^3/uL (1.8-7.7) Lymphocytes # (Auto) 1.2 x10^3/uL (1.0-4.8) Monocytes # (Auto) 0.6 x10^3/uL (0.0-1.1) Eosinophils # (Auto) 0.0 x10^3/uL (0.0-0.7) Basophils # (Auto) 0.0 x10^3/uL (0.0-0.2) D-Dimer (Pari) 0.41 ug/mlFEU (0.00-0.50) Sodium Level 140 mmol/L (136-145) Potassium Level 4.1 mmol/L (3.5-5.1) Chloride Level 104 mmol/L (98-107) Carbon Dioxide Level 27 mmol/L (21-32) Anion Gap 9 (6-14) Blood Urea Nitrogen 12 mg/dL (7-20) Creatinine 0.6 mg/dL (0.6-1.0) Estimated GFR (Cockcroft-Gault) 105.8 BUN/Creatinine Ratio 20 (6-20) Glucose Level 150 mg/dL (70-99) Calcium Level 9.1 mg/dL (8.5-10.1) Total Bilirubin 0.3 mg/dL (0.2-1.0) Aspartate Amino Transf (AST/SGOT) 19 U/L (15-37) Alanine Aminotransferase (ALT/SGPT) 43 U/L (14-59) Alkaline Phosphatase 95 U/L (46-116) Total Protein 6.7 g/dL (6.4-8.2) Albumin 2.8 g/dL (3.4-5.0) Albumin/Globulin Ratio 0.7 (1.0-1.7) Laboratory Tests Test 05/31/20 08:55 White Blood Count 12.8 x10^3/uL (4.0-11.0) Red Blood Count 4.79 x10^6/uL (3.50-5.40) Hemoglobin 14.2 g/dL (12.0-15.5) Hematocrit 43.2 % (36.0-47.0) Mean Corpuscular Volume 90 fL (79-100) Mean Corpuscular Hemoglobin 30 pg (25-35) Mean Corpuscular Hemoglobin Concent 33 g/dL (31-37) Red Cell Distribution Width 12.9 % (11.5-14.5) Platelet Count 482 x10^3/uL (140-400) Neutrophils (%) (Auto) 86 % (31-73) Lymphocytes (%) (Auto) 10 % (24-48) Monocytes (%) (Auto) 5 % (0-9) Eosinophils (%) (Auto) 0 % (0-3) Basophils (%) (Auto) 0 % (0-3) Neutrophils # (Auto) 11.0 x10^3/uL (1.8-7.7) Lymphocytes # (Auto) 1.2 x10^3/uL (1.0-4.8) Monocytes # (Auto) 0.6 x10^3/uL (0.0-1.1) Eosinophils # (Auto) 0.0 x10^3/uL (0.0-0.7) Basophils # (Auto) 0.0 x10^3/uL (0.0-0.2) D-Dimer (Pari) 0.41 ug/mlFEU (0.00-0.50) Sodium Level 140 mmol/L (136-145) Potassium Level 4.1 mmol/L (3.5-5.1) Chloride Level 104 mmol/L (98-107) Carbon Dioxide Level 27 mmol/L (21-32) Anion Gap 9 (6-14) Blood Urea Nitrogen 12 mg/dL (7-20) Creatinine 0.6 mg/dL (0.6-1.0) Estimated GFR (Cockcroft-Gault) 105.8 BUN/Creatinine Ratio 20 (6-20) Glucose Level 150 mg/dL (70-99) Calcium Level 9.1 mg/dL (8.5-10.1) Total Bilirubin 0.3 mg/dL (0.2-1.0) Aspartate Amino Transf (AST/SGOT) 19 U/L (15-37) Alanine Aminotransferase (ALT/SGPT) 43 U/L (14-59) Alkaline Phosphatase 95 U/L (46-116) Total Protein 6.7 g/dL (6.4-8.2) Albumin 2.8 g/dL (3.4-5.0) Albumin/Globulin Ratio 0.7 (1.0-1.7) Medications Active Scripts Medications Dose Route/Sig Max Daily Dose Days Date Category Ventolin Hfa Inhaler (Albuterol Sulfate) 18 Gm Hfa.aer.ad 2 Puff INH QID 05/28/20 Reported Aspirin 81 Mg Tab.chew 1 Tab PO DAILY 05/28/20 Reported Impression . IMPRESSION: 1. Acute hypoxemic respiratory failure secondary to COVID-19 viral pneumonia. 2. Abnormal x-ray. 3. Possible bacterial pneumonia. 4. Obesity. 5. Leukocytosis. 6. Protein malnutrition, present upon admission. Plan . 1. Continue current support with steroids. 2. Added remdesivir. 05/29/20 3. Follow up on blood cultures. So far negative 4. Continue doxycycline. 5. Oxygen supplementation. on 2 litres 6. Deep venous thrombosis prophylaxis. 7. stable pulmonary quinones. will see prn AYDIN WOOD MD May 31, 2020 10:47
[2020-05-31 11:00] VITALS: BP 125/60
[2020-05-31] MEDS ORDERED: SENNOSIDES/DOCUSATE 8.6/50MG TABLET. PO PRN (11:45)
[2020-05-31] MEDS ORDERED: DOCUSATE SODIUM 100 MG CAPSULE. PO PRN (11:45)
--- NOTE | 2020-05-31 12:02 | PDOC ---
[employer] PROGRESS NOTE Date of Service DOS: DATE: 05/31/20 TIME: 12:02 Chief Complaint Chief Complaint A/P: Acute hypoxic respiratory failure COVID-19 infection Patchy bilateral opacities, concerning for multifocal infection. sec SARS 2 Covid 19 syndrome morbid obesity Sepsis - fever, leukocytosis, due to COVID 19 pneumonia plan admit o2 support iv decadron 6 mg bid pulm consult dvt prophylaxis resp isolation albuterol inhaler 2 puffs q 4 hrs prn iv doxycycline 100mg bid PEPSID 20 MG PO BID VITC, MVI, VIT D History of Present Illness History of Present Illness Ms Silverio is a 50 year old female w/ PMHx morbid obesity s/p gastric bypass who presented to ER for evaluation of trouble breathing. Sick with cough and URI symptoms for a week, was tested positive for COVID-19 on 05/23/2020. Patient is on Z-Sage, prednisone, albuterol inhaler. She presented to ER today because her pulse ox at home was read at 80% on room air. No history of COPD, she is not on oxygen at home Patient had an oral temp of 100.7, and has a productive cough. Patient is awake, alert, ABC's intact, SPO2 was 91% ra, 2LPM NC paced on patient, SPO2 improved to 97%. 05/29: No acute events overnight. Patient is saturating 92% on 2 L nasal cannula. No dyspneic episodes and breathing fine. Patient has done prone positioning while watching TV. 05/30: Afebrile. On 2 to 3 L nasal cannula oxygen dependent with movement. Has no significant sense of taste. Minimal appetite. Appetite improved. on 1.5L NCO2 today. Constipated. coughing less. Vitals/I&O Vitals/I&O: Vital Signs Date Time Temp Pulse Resp B/P (MAP) Pulse Ox O2 Delivery O2 Flow Rate FiO2 05/31/20 07:00 97.4 54 24 141/79 (99) 95 Nasal Cannula 2.0 97.4 I & O 05/30/20 05/30/20 05/31/20 15:00 23:00 07:00 Intake Total 350 ml 500 ml Balance 350 ml 500 ml Physical Exam General: Alert, Oriented X3, Cooperative, No acute distress Lungs: Clear Extremities: No cyanosis Labs Labs: Laboratory Tests Test 05/31/20 08:55 White Blood Count 12.8 x10^3/uL (4.0-11.0) Red Blood Count 4.79 x10^6/uL (3.50-5.40) Hemoglobin 14.2 g/dL (12.0-15.5) Hematocrit 43.2 % (36.0-47.0) Mean Corpuscular Volume 90 fL (79-100) Mean Corpuscular Hemoglobin 30 pg (25-35) Mean Corpuscular Hemoglobin Concent 33 g/dL (31-37) Red Cell Distribution Width 12.9 % (11.5-14.5) Platelet Count 482 x10^3/uL (140-400) Neutrophils (%) (Auto) 86 % (31-73) Lymphocytes (%) (Auto) 10 % (24-48) Monocytes (%) (Auto) 5 % (0-9) Eosinophils (%) (Auto) 0 % (0-3) Basophils (%) (Auto) 0 % (0-3) Neutrophils # (Auto) 11.0 x10^3/uL (1.8-7.7) Lymphocytes # (Auto) 1.2 x10^3/uL (1.0-4.8) Monocytes # (Auto) 0.6 x10^3/uL (0.0-1.1) Eosinophils # (Auto) 0.0 x10^3/uL (0.0-0.7) Basophils # (Auto) 0.0 x10^3/uL (0.0-0.2) D-Dimer (Pari) 0.41 ug/mlFEU (0.00-0.50) Sodium Level 140 mmol/L (136-145) Potassium Level 4.1 mmol/L (3.5-5.1) Chloride Level 104 mmol/L (98-107) Carbon Dioxide Level 27 mmol/L (21-32) Anion Gap 9 (6-14) Blood Urea Nitrogen 12 mg/dL (7-20) Creatinine 0.6 mg/dL (0.6-1.0) Estimated GFR (Cockcroft-Gault) 105.8 BUN/Creatinine Ratio 20 (6-20) Glucose Level 150 mg/dL (70-99) Calcium Level 9.1 mg/dL (8.5-10.1) Total Bilirubin 0.3 mg/dL (0.2-1.0) Aspartate Amino Transf (AST/SGOT) 19 U/L (15-37) Alanine Aminotransferase (ALT/SGPT) 43 U/L (14-59) Alkaline Phosphatase 95 U/L (46-116) Total Protein 6.7 g/dL (6.4-8.2) Albumin 2.8 g/dL (3.4-5.0) Albumin/Globulin Ratio 0.7 (1.0-1.7) Assessment and Plan Assessmemt and Plan Problems Medical Problems: (1) Pneumonia due to COVID-19 virus Status: Acute (2) Respiratory failure Status: Acute Comment Review of Relevant I have reviewed the following items deyvi (where applicable) has been applied. Medications: Current Medications Medications (Trade) Dose Ordered Sig/Ad Route PRN Reason Start Time Stop Time Status Last Admin Dose Admin Remdesivir 100 mg/ Sodium Chloride 230 ml @ 460 mls/hr Q24H IV 05/30/20 20:00 06/02/20 20:29 05/30/20 21:13 Lactobacillus Rhamnosus (Culturelle) 1 cap BID PO 05/30/20 21:00 05/31/20 08:13 Justifications for Admission General Conditions Other justification for admit: acute hypoxic resp failure Other Justification SINDY COUCH MD May 31, 2020 12:02
[2020-05-31] MEDS: POLYETHYLENE GLYCOL 3350 17 GM PACKET. PO SCH (12:13)
[2020-05-31 15:00] VITALS: BP 152/66
--- NOTE | 2020-05-31 17:12 | NUR ---
SW following for discharge planning. Spoke with RN and reviewed chart. Pt remains on IV Remdesivir, day 3. Working to titrate 02. Possible 6 min walk needed prior to discharge. PT recommendation is home, independent. Discharge plan remains home, self-care. SW following.
[2020-05-31 19:00] VITALS: BP 131/70
[2020-05-31] MEDS: REMDESIVIR 100mg in NORMAL SALINE 250ML X 4 DAYS IV SCH (20:08)
[2020-05-31 23:51] VITALS: BP 109/51
[2020-06-01 03:32] VITALS: BP 136/63
[2020-06-01 07:00] VITALS: BP 144/67
[2020-06-01] MEDS: IPRATROPIUM/ALBUTEROL 20/100mcg/INH INHALER. INH SCH ×2 (08:12→12:03)
[2020-06-01] MEDS: DOXYCYCLINE HYCLATE 100 MG in IV DEXTROSE 5% 100ML 100 ML IV SCH (09:17)
[2020-06-01] MEDS: ENOXAPARIN 40 MG/0.4 ML SYRINGE. SQ SCH (09:17)
[2020-06-01] MEDS: POLYETHYLENE GLYCOL 3350 17 GM PACKET. PO SCH (09:17)
[2020-06-01] MEDS: DEXAMETHASONE SOD PHOS 4 MG/ML VIAL IVP SCH (09:18)
[2020-06-01] MEDS: ASCORBIC ACID 500 MG TABLET PO SCH (09:18)
[2020-06-01] MEDS: ASPIRIN CHEWABLE 81 MG TABLET. PO SCH (09:18)
[2020-06-01] MEDS: LACTOBACILLUS RHAMNOSUS GG 1 CAPSULE. PO SCH (09:18)
[2020-06-01] MEDS: FAMOTIDINE 20 MG TABLET. PO SCH (09:18)
[2020-06-01] MEDS: CHOLECALCIFEROL (VITAMIN D3) 1,000 UNIT TABLET PO SCH (09:18)
[2020-06-01] MEDS: VITAMIN B12,B9,B6 COMPLEX 1 TABLET. PO SCH (09:18)
[2020-06-01 11:00] VITALS: BP 137/68
[2020-06-01] MEDS ORDERED: CALCIUM CARBONATE 500 MG TAB.CHEW PO PRN (11:00)
--- NOTE | 2020-06-01 13:19 | PDOC ---
[employer] PROGRESS NOTE Date of Service DOS: DATE: 06/01/20 TIME: 13:17 Chief Complaint Chief Complaint A/P: Acute hypoxic respiratory failure COVID-19 infection Patchy bilateral opacities, concerning for multifocal infection. sec SARS 2 Covid 19 syndrome morbid obesity Sepsis - fever, leukocytosis, due to COVID 19 pneumonia plan admit o2 support iv decadron 6 mg bid pulm consult dvt prophylaxis resp isolation albuterol inhaler 2 puffs q 4 hrs prn iv doxycycline 100mg bid PEPSID 20 MG PO BID VITC, MVI, VIT D History of Present Illness History of Present Illness Ms Silverio is a 50 year old female w/ PMHx morbid obesity s/p gastric bypass who presented to ER for evaluation of trouble breathing. Sick with cough and URI symptoms for a week, was tested positive for COVID-19 on 05/23/2020. Patient is on Z-Sage, prednisone, albuterol inhaler. She presented to ER today because her pulse ox at home was read at 80% on room air. No history of COPD, she is not on oxygen at home Patient had an oral temp of 100.7, and has a productive cough. Patient is awake, alert, ABC's intact, SPO2 was 91% ra, 2LPM NC paced on patient, SPO2 improved to 97%. 05/29: No acute events overnight. Patient is saturating 92% on 2 L nasal cannula. No dyspneic episodes and breathing fine. Patient has done prone positioning while watching TV. 05/30: Afebrile. On 2 to 3 L nasal cannula oxygen dependent with movement. Has no significant sense of taste. Minimal appetite. 05/31: Appetite improved. on 1.5L NCO2 today. Constipated. coughing less. Afebrile. O2 saturations 92% on room air while eating. She feels stronger. Coughing less. She has pain at her IV site and is asking if she can take a shower. Vitals/I&O Vitals/I&O: Vital Signs Date Time Temp Pulse Resp B/P (MAP) Pulse Ox O2 Delivery O2 Flow Rate FiO2 06/01/20 11:00 96.7 50 20 137/68 (91) 96 Nasal Cannula 2.0 96.7 I & O 1/505/31/20 06/01/20 14:59 22:59 06:59 Intake Total 250 ml 100 ml 360 ml Balance 250 ml 100 ml 360 ml Physical Exam General: Alert, Oriented X3, Cooperative, No acute distress Lungs: Clear Extremities: No cyanosis Assessment and Plan Assessmemt and Plan Problems Medical Problems: (1) Pneumonia due to COVID-19 virus Status: Acute (2) Respiratory failure Status: Acute Comment Review of Relevant I have reviewed the following items deyvi (where applicable) has been applied. Medications: Current Medications Medications (Trade) Dose Ordered Sig/Ad Route PRN Reason Start Time Stop Time Status Last Admin Dose Admin Calcium Carbonate/ Glycine (Tums) 500 mg PRN Q4HRS PRN PO INDIGESTION 06/01/20 11:00 06/01/20 11:41 Justifications for Admission General Conditions Other justification for admit: acute hypoxic resp failure Other Justification SINDY COUCH MD Jun 01, 2020 13:19
[2020-06-01] MEDS ORDERED: ZINC50TA39 PO (14:57)
[2020-06-01] MEDS ORDERED: DOXY100C2 PO (14:57)
[2020-06-01] MEDS ORDERED: DEXA6TAB6 PO (14:57)
[2020-06-01 15:00] VITALS: BP 153/66
--- NOTE | 2020-06-01 15:01 | PDOC3 ---
Discharge Summary Visit Information Date of Admission: May 28, 2020 Date of Discharge: Jun 01, 2020 Admitting Diagnosis: COVID 19 pneumonia Final Diagnosis Problems Medical Problems: (1) Pneumonia due to COVID-19 virus Status: Acute (2) Respiratory failure Status: Acute Brief Hospital Course Allergies Allergies Coded Allergies Type Severity Reaction Last Updated Verified Penicillins Allergy Intermediate 05/29/20 Yes Vital Signs Vital Signs Date Time Temp Pulse Resp B/P (MAP) Pulse Ox O2 Delivery O2 Flow Rate FiO2 06/01/20 11:00 96.7 50 20 137/68 (91) 96 Nasal Cannula 2.0 96.7 Lab Results Laboratory Tests Test 05/31/20 08:55 White Blood Count 12.8 x10^3/uL (4.0-11.0) Red Blood Count 4.79 x10^6/uL (3.50-5.40) Hemoglobin 14.2 g/dL (12.0-15.5) Hematocrit 43.2 % (36.0-47.0) Mean Corpuscular Volume 90 fL (79-100) Mean Corpuscular Hemoglobin 30 pg (25-35) Mean Corpuscular Hemoglobin Concent 33 g/dL (31-37) Red Cell Distribution Width 12.9 % (11.5-14.5) Platelet Count 482 x10^3/uL (140-400) Neutrophils (%) (Auto) 86 % (31-73) Lymphocytes (%) (Auto) 10 % (24-48) Monocytes (%) (Auto) 5 % (0-9) Eosinophils (%) (Auto) 0 % (0-3) Basophils (%) (Auto) 0 % (0-3) Neutrophils # (Auto) 11.0 x10^3/uL (1.8-7.7) Lymphocytes # (Auto) 1.2 x10^3/uL (1.0-4.8) Monocytes # (Auto) 0.6 x10^3/uL (0.0-1.1) Eosinophils # (Auto) 0.0 x10^3/uL (0.0-0.7) Basophils # (Auto) 0.0 x10^3/uL (0.0-0.2) D-Dimer (Pari) 0.41 ug/mlFEU (0.00-0.50) Sodium Level 140 mmol/L (136-145) Potassium Level 4.1 mmol/L (3.5-5.1) Chloride Level 104 mmol/L (98-107) Carbon Dioxide Level 27 mmol/L (21-32) Anion Gap 9 (6-14) Blood Urea Nitrogen 12 mg/dL (7-20) Creatinine 0.6 mg/dL (0.6-1.0) Estimated GFR (Cockcroft-Gault) 105.8 BUN/Creatinine Ratio 20 (6-20) Glucose Level 150 mg/dL (70-99) Calcium Level 9.1 mg/dL (8.5-10.1) Total Bilirubin 0.3 mg/dL (0.2-1.0) Aspartate Amino Transf (AST/SGOT) 19 U/L (15-37) Alanine Aminotransferase (ALT/SGPT) 43 U/L (14-59) Alkaline Phosphatase 95 U/L (46-116) Total Protein 6.7 g/dL (6.4-8.2) Albumin 2.8 g/dL (3.4-5.0) Albumin/Globulin Ratio 0.7 (1.0-1.7) Brief Hospital Course Ms Silverio is a 50 year old female w/ PMHx morbid obesity s/p gastric bypass who presented to ER for evaluation of trouble breathing. Sick with cough and URI symptoms for a week, was tested positive for COVID-19 on 05/23/2020. Patient is on Z-Sage, prednisone, albuterol inhaler. She presented to ER today because her pulse ox at home was read at 80% on room air. No history of COPD, she is not on oxygen at home Patient had an oral temp of 100.7, and has a productive cough. Patient is awake, alert, ABC's intact, SPO2 was 91% ra, 2LPM NC paced on patient, SPO2 improved to 97%. 05/29: No acute events overnight. Patient is saturating 92% on 2 L nasal cannula. No dyspneic episodes and breathing fine. Patient has done prone positioning while watching TV. 05/30: Afebrile. On 2 to 3 L nasal cannula oxygen dependent with movement. Has no significant sense of taste. Minimal appetite. 05/31: Appetite improved. on 1.5L NCO2 today. Constipated. coughing less. Afebrile. O2 saturations 92% on room air while eating. She feels stronger. Coughing less. She has pain at her IV site and is asking if she can take a shower. After 6 minute walk showed no O2 needs patient noted she wishes to recuperate at home and forego her last 2 remdesivir doses. Home with 10 days decadron, ASA, and 5 days doxycycline Consults: Pulm Problem list: Acute hypoxic respiratory failure COVID-19 infection Patchy bilateral opacities, concerning for multifocal infection. sec SARS 2 Covid 19 syndrome morbid obesity - s/p gastric bypass Sepsis - fever, leukocytosis, due to COVID 19 pneumonia Greater than 30 minutes spent on d/c home Discharge Information Condition at Discharge: Improved Follow Up: Weeks Disposition/Orders: D/C to Home Scheduled Albuterol Sulfate (Ventolin Hfa Inhaler) 18 Gm Hfa.aer.ad, 2 PUFF INH QID for FOR ASTHMA, Ref 0 (Reported) Entered as Reported by: RAÚL QUEVEDO RN on 05/28/201830 Last Action: New Order on 05/28/201830 by RAÚL QUEVEDO RN Aspirin (Aspirin) 81 Mg Tab.chew, 1 TAB PO DAILY for prophylactic, #30 Ref 3 (Reported) Entered as Reported by: RAÚL QUEVEDO RN on 05/28/201829 Last Action: Continued on 05/29/20 1402 by GARRETT RUIZ Dexamethasone (Decadron) 6 Mg Tablet, 1 TAB PO DAILY for COVID 19 for 10 Days, #10 Ref 0 Prescribed by: SINDY COUCH MD on 06/01/20 1457 Doxycycline Hyclate (Doxycycline Hyclate) 100 Mg Capsule, 1 CAP PO BID for Pneumonia for 5 Days, #10 Prescribed by: SINDY COUCH MD on 06/01/20 1457 Zinc (Zinc) 50 Mg Tablet, 1 TAB PO DAILY for COVID 19 for 30 Days, #30 Ref 0 Prescribed by: SINDY COUCH MD on 06/01/20 1457 Justicifation of Admission Dx: Justifications for Admission: Justification of Admission Dx: Yes Respiratory Failure: Severe Resp Distress SINDY COUCH MD Jun 01, 2020 15:01
--- NOTE | 2020-06-01 16:18 | NUR ---
SW following for discharge planning. Spoke with RN and reviewed chart. Pt now on room air. No home 02 needed on discharge. Pt to discharge home today, self-care. No further SW needs at this time.
--- NOTE | 2020-06-01 17:38 | NUR ---
Pt left the unit at 1725. Pt was given discharge packet and instructions. Pt had no concerns/questions. IV and heart monitor was removed from the pt. Pt's vital signs and labs are WNL. Pt left the unit stable.
== END 2020-06-01 17:25 | disposition home or self-care (01) | DRG 871 ==
LOC: ER 07:14 → ED HOLD 09:00 → MERGE 09:00 → 6 SOUTH 12:42
PROVIDERS: ADMIT Family Medicine; ATTEND Family Medicine
PROC: XW033E5 Introduction of Remdesivir Anti-infective into Peripheral Vein, Percutaneous Approach, New Technology Group 5 (ICD-10-PCS; principal; 2020-05-28)
DX: A41.89 Other specified sepsis (principal); U07.1 COVID-19; J96.01 Acute respiratory failure with hypoxia; J12.82 Pneumonia due to coronavirus disease 2019; E46 Unspecified protein-calorie malnutrition; E66.01 Morbid (severe) obesity due to excess calories; Z68.35 Body mass index [BMI] 35.0-35.9, adult; Z79.899 Other long term (current) drug therapy; Z98.84 Bariatric surgery status; Z99.81 Dependence on supplemental oxygen; Z88.0 Allergy status to penicillin
CPT/HCPCS: 36415; 71045; 80053; 83605; 83735; 83880; 84484; 85007; 85025; 85379; 87040; 93005; 94618; 94760; J1100; J1650; J3490; J7050; J7060; 99285-25; G0378; J7030